=== PATIENT | male | born 1980 ===

== ENCOUNTER 2021-01-20 06:46 | Day surgery (SDC) | payer OTHER ==
[2021-01-20] MEDS ORDERED: AMOX-CLAV 875-1 EACH PO (15:53)
[2021-01-20] MEDS ORDERED: CILOXAN5 ML OTIC (15:53)
[2021-01-20] MEDS ORDERED: ZOFRAN8 MG PO (15:53)
== END 2021-01-20 18:10 | disposition home or self-care (01) ==
LOC: CIR.AMB 06:46
PROVIDERS: ATTEND Otolaryngology Otology & Neurotology
DX: H71.22 Cholesteatoma of mastoid, left ear (principal); H72.12 Attic perforation of tympanic membrane, left ear; H90.72 Mixed conductive and sensorineural hearing loss, unilateral, left ear, with unrestricted hearing on the contralateral side; Z20.822 Contact with and (suspected) exposure to COVID-19

== ENCOUNTER 2023-02-21 13:10 | Outpatient (CLI) | payer OTHER ==
[~2023-02-21 13:10] MED LIST: AMOX-CLAV 875-1 EACH PO; CILOXAN5 ML OTIC; ZOFRAN8 MG PO
== END 2023-02-21 13:26 | disposition home or self-care (01) ==
LOC: MRI 13:10
DX: M54.42 Lumbago with sciatica, left side (principal)
CPT/HCPCS: 72148